=== PATIENT | male | born 1945 | race Two or more races ===

== ENCOUNTER 2023-07-22 07:50 | Emergency (ER) | payer OTHER ==
[~2023-07-22] VITALS: Ht 177.8 cm; Wt 82.0 kg
[2023-07-22 08:30] VITALS: PULSE 67; RESP 18; TEMP 97.5; O2SAT 97
[2023-07-22 08:36] VITALS: BP 163/91
== END 2023-07-22 08:44 | disposition home or self-care (01) ==
LOC: ER 07:50
DX: R04.0 Epistaxis (principal); I48.91 Unspecified atrial fibrillation